=== PATIENT | male | born 1960 | race Caucasian/White ===

== ENCOUNTER → 2017-09-17 | Outpatient (CLI) | payer BC ==
[~2017-09-17] MED LIST: ALEVE; ATOR20TA22 PO; BUP100 PO; HYDR12.561 PO; IBU600 PO; IOPAMIDOL 76% 100 ML INFUS BTL 100 ML ONE; LMEF1TAB; LOR5/325 PO; NICO2LOZ70 BC
--- NOTE | 2017-09-17 17:12 | RADIOLOGY IMAGING REPORT ---
FACILITY: [facility] PATIENT NAME: Silvestre Hi : 1960 MR: [id number] V: [id number] EXAM DATE: ORDERING PHYSICIAN: AFTAB RICHARDSON [place]CHNOLOG[place] [facility] [place] Silvestre Hi : 1960 Visit/Account:[id number] Date of Sevice: 09/17/2017 CTA CHEST WW/O CNTR (PULM ANG) HISTORY: Family history of sudden cardiac , no chest complaints ADDITIONAL HISTORY: None. TECHNIQUE: CTA chest with and without intravenous contrast. Axial imaging acquired following admini stration of IV contrast timed for maximum opacification of the pulmonary arterial vasculature. Slab 3-D MIP reconstructed images were also created for further evaluation and interpretation. Reconstruct ion of the source data set includes multiplanar 2-D in the sagittal and coronal planes and 3-D recons tructed coronal slab MIP series. 3-D images were created by the technologist. CONTRAST: 100 mL [id number] COMPARISON: CTA chest March 24, 2008 FINDINGS: Lungs/pleura: There is mild pleural thickening seen over the upper lobes similar to the prior study. . There are small scattered calcified granulomas also similar to the prior study Heart/vessels: There is a small amount of mural thrombus in the proximal left subclavian artery ther e is no evidence of a thoracic aortic aneurysm or dissection. There is very mild soft plaque seen in the mid to distal descending thoracic aorta. There are very mild atherosclerotic calcifications in the thoracic aorta and visualized proximal abdominal aorta and branch vessels including the coronary arteries. There is a mild narrowing at the celiac trunk and a high-grade narrowing of the celiac trunk approxim ate 1.5 cm beyond its origin Mediastinum/lymph nodes: Negative. Visualized upper abdomen: There is a 1 cm partially calcified nodule immediately contiguous with the left adrenal gland that appears similar to the prior study Bones/soft tissues: There are spondylotic changes of the thoracic spine Additional findings: None IMPRESSION: There is mild pleural thickening over the upper lobes bilaterally and scattered calcified granulomas some are to the prior examination There is a small amount of mural thrombus/soft plaque in the proximal left subclavian artery. There is also mild soft plaque/mural thrombus in the mid to distal descending thoracic aorta.. There is no demonstration of thoracic aortic aneurysm or dissection. There is mild narrowing at the origin the celiac trunk and a high-grade narrowing of the celiac trunk approximately 1.5 cm beyond its origin There is a 1 cm stable partially calcified left adrenal nodule Report Dictated By: Sofie Juarez MD at 09/17/2017 4:43 PM Report E-Signed By: Sofie Juarez MD at 09/17/2017 5:07 PM WSN:[email or web address]
== END ==
LOC: CT 02:19
PROVIDERS: ATTEND Physician Assistant
DX: J92.9 Pleural plaque without asbestos (principal); J84.10 Pulmonary fibrosis, unspecified; I70.0 Atherosclerosis of aorta; Z82.41 Family history of sudden cardiac death
CPT/HCPCS: 36415; 71275; Q9967; 82040; 82247; 82310; 82374; 82435; 82565; 82947; 84075; 84132; 84155; 84295; 84450; 84460; 84520